=== PATIENT | female | born 1995 | race Caucasian/White ===

== ENCOUNTER 2022-12-07 17:47 | Emergency (ER) | payer BC ==
[~2022-12-07] VITALS: Ht 154.9 cm; Wt 72.0 kg
[2022-12-07] MEDS ORDERED: acetaminophen 325mg tablet PO ONE (19:10)
[2022-12-07] MEDS ORDERED: ibuprofen tablet 400 MG TABLET PO ONE (19:10)
[2022-12-07] MEDS ORDERED: AMOX500C2 PO (19:28)
[2022-12-07] MEDS ORDERED: amoxicillin 250mg capsule PO STA (19:43)
[2022-12-07 19:50] VITALS: BP 142/80
== END 2022-12-07 19:51 | disposition home or self-care (01) ==
LOC: ER 17:47
DX: H66.92 Otitis media, unspecified, left ear (principal); Z79.899 Other long term (current) drug therapy
CPT/HCPCS: 99283

== ENCOUNTER 2024-05-12 07:28 | Emergency (ER) | payer BC ==
[~2024-05-12] VITALS: Ht 154.9 cm; Wt 81.8 kg
[2024-05-12 07:32] VITALS: TEMP 99.3
[2024-05-12 08:59] LABS: STREP A SCREEN NEGATIVE (Neg)
[2024-05-12] MEDS: normal saline 1000ML IV soln IVB ONE ×2 (10:26→12:10)
[2024-05-12] MEDS: dexamethasone sod phosphate 10mg/ml inj IV STA (10:29)
[2024-05-12] MEDS: ketorolac tromethamine 15mg/ml inj. IV ONE (10:30)
[2024-05-12 10:43] LABS: BASOPHILS % (AUTO) 0.2 % (0-1); EOSINOPHILS % (AUTO) 0.1 % (0-6); HEMATOCRIT 43.2 % (35.0-45.0); HEMOGLOBIN 14.3 g/dl (12.0-16.0); LYMPHOCYTES % (AUTO) 5.4 % (21-51); MEAN CORPUSCULAR HEMOGLOBIN 27.5 PG (27.0-31.0); MEAN CORPUSCULAR VOLUME 83.4 FL (78-98); MEAN PLATELET VOLUME 7.7 FL (7.4-10.4); MONOCYTES # (AUTO) 1.3 X10'3 (0-0.9); MONOCYTES % (AUTO) 6.9 % (2-12); NEUTROPHILS # (AUTO) 16.9 X10'3 (1.8-7.7); NEUTROPHILS % (AUTO) 87.4 % (42-75); PLATELET COUNT 295 X10'3 (140-440); RED BLOOD COUNT 5.18 X10'6 (4.20-5.60); RED CELL DISTRIBUTION WIDTH 13.8 % (11.5-14.5); WHITE BLOOD COUNT 19.3 X10'3 (4.5-11.0)
[2024-05-12 10:54] LABS: ALBUMIN 4.1 G/DL (3.4-5.0); ANION GAP 13 (8-16); BLOOD UREA NITROGEN 9 MG/DL (7-18); BUN/CREATININE RATIO 12.2 (10.0-20.0); CHLORIDE 101 MMOL/L (99-107); CREATININE 0.74 MG/DL (0.40-0.90); GLUCOSE 120 MG/DL (70-104); POTASSIUM 3.9 MMOL/L (3.5-5.1); SODIUM 135 MMOL/L (135-145); TOTAL CARBON DIOXIDE 21.2 MMOL/L (24-32); eCRCL 84 ML/MIN; eGFR > 90 ML/MIN
[2024-05-12 11:16] LABS: MONOTEST NEGATIVE (Neg)
[2024-05-12] MEDS: CefTRIAXone 2gm/D5W 50ml BAG 50 ML IV ONE (11:27)
[2024-05-12 13:00] VITALS: BP 120/74; PULSE 102; RESP 16; O2SAT 96
== END 2024-05-12 13:56 | disposition home or self-care (01) ==
LOC: ER 07:29
DX: J02.9 Acute pharyngitis, unspecified (principal); Z20.822 Contact with and (suspected) exposure to COVID-19; Z91.041 Radiographic dye allergy status
CPT/HCPCS: 36415; 80048; 84145; 85025; 86308; 87081; 87502; 87503; 87811; 87880; 96361; 96365; 96375; 99284; J0696; J1100; J1885; J7030